=== PATIENT | female | born 2000 | race Caucasian/White ===

== ENCOUNTER 2021-06-14 10:18 | Emergency (ER) | payer BC, SELFPAY ==
--- NOTE | ~2021-06-14 | XR_ITS ---
EXAMINATION: XR ankle LT min 3V EXAM DATE: 06/14/2021 10:34 INDICATION: Pain/swelling lat Lt ankle; twisted ankle last P.M. initial encounter. TECHNIQUE: Left ankle frontal, lateral and oblique projections obtained and reviewed. There is no pr ior study for comparison. FINDINGS: The left ankle mortise appears intact. There are no acute fractures or dislocations ident ified. There is no subcutaneous gas. The soft tissue is unremarkable. There are no radiopaque for eign bodies. IMPRESSION: 1. Left ankle exam without acute osseous findings. Reviewed, dictated and finalized at location A.
[2021-06-14 10:26] VITALS: BP 133/79; PULSE 79; RESP 16; TEMP 36.7; O2SAT 100
--- NOTE | 2021-06-14 11:04 | ED.LOWEXIN ---
HPI - Extremity Injury (Lower) General Chief Complaint: Extremity Injury, Lower Stated Complaint: lt ankle injury Time Seen by Provider: 06/14/21 10:48 Source: patient and RN notes reviewed Mode of arrival: ambulatory Limitations: no limitations History of Present Illness HPI Narrative: Patient presents today complaining of left ankle injury. She tripped and twisted the ankle last night. She has been ambulatory since the injury. Denies numbness or tingling. Currently rates her pain 5/10 and has been applying ice with some relief. Pain increases with weightbearing. MD complaint: ankle injury Related Data Home Medications Medication Instructions Recorded Confirmed L norgest/E estradiol-E estrad 1 tablet PO DAILY 09/13/19 0.15 mg-30 mcg (84)/10 mcg(7) tabs,3mos Allergies Allergy/AdvReac Type Severity Reaction Status Date / Time erythromycin base Allergy Mild Unknown Verified 09/13/19 13:50 Review of Systems Review of Systems: CONSTITUTIONAL: Denies body aches, fever, chills, or sweats. EYES: Denies visual changes, redness, or discharge. ENT: Denies rhinorrhea, congestion, sore throat, or otalgia. CARDIOVASCULAR: Denies chest pain, palpitations, or edema. RESPIRATORY: Denies cough or dyspnea. GASTROINTESTINAL: Denies abdominal pain, nausea, vomiting, or diarrhea. GENITOURINARY: Denies dysuria or hematuria. SKIN: Denies rash, itching, or wounds. MUSCULOSKELETAL: Denies back pain, or myalgia. + Left ankle injury NEUROLOGIC: Denies headache, numbness, tingling, or weakness. PSYCH: Denies depression or anxiety. [facility] Past Medical History Medical History Acne Eczema Environmental allergies Pneumonia twice, last episode was age 8 Surgical History Surgical History No pertinent past surgical history Family History Family History Mother Melanoma Lupus Social History Social History Smoking status: Never smoker Second hand tobacco smoke exposure: No Alcohol intake: never Substance use: never Substance use type: does not use Comments At time of signature, I have reviewed and agree with nursing past medical, surgical, social and family history unless otherwise noted. Please see nursing chart for further information. There is no relevant family history pertinent to the presenting complaint Exam Narrative: GENERAL: Well-appearing, well-nourished, and in no acute distress. HEAD: Normocephalic, atraumatic. EYES: EOMI. No redness or drainage. Conjunctivae normal. ENT: Mucous membranes pink and moist. NECK: Normal AROM. CHEST: No respiratory distress. EXTREMITIES: Left ankle: Mild swelling and tenderness to the lateral malleolus. No tenderness medially. No tenderness to the foot. Distal sensation intact. Capillary refill normal. Pedal pulse normal. Full range of motion of the toes and ankle. SKIN: Warm, dry, no rash. Capillary refill normal. Normal skin turgor. NEURO: No focal deficits. Alert and oriented x3. Gait steady. PSYCH: Normal affect. No signs of depression or anxiety. Course Vital Signs Vital signs: Vital Signs Temperature 98.1 F 06/14/21 10:26 Pulse Rate 79 06/14/21 10:26 Respiratory Rate 16 06/14/21 10:26 Blood Pressure 133/79 06/14/21 10:26 Pulse Oximetry 100 06/14/21 10:26 Temperature 98.1 F 06/14/21 10:26 Pulse Rate 79 06/14/21 10:26 Respiratory Rate 16 06/14/21 10:26 Blood Pressure 133/79 06/14/21 10:26 Pulse Oximetry 100 06/14/21 10:26 Reviewed. Pt has been instructed to follow up with her PCP regarding her elevated blood pressure today. MDM - Extremity Injury (Lower) Differential Diagnosis Differential diagnosis: Likely ankle sprain and strain and ankle fracture Imaging Data
== END 2021-06-14 11:20 | disposition home or self-care (01) ==
PROVIDERS: Emergency Provider Nurse Practitioner; PCP Family Medicine
DX: S93.402A Sprain of unspecified ligament of left ankle, initial encounter (principal); X50.9XXA Other and unspecified overexertion or strenuous movements or postures, initial encounter
CPT/HCPCS: 73610; 99213; G0463